=== PATIENT | male | born 1935 | race Caucasian/White ===

== ENCOUNTER → 2017-07-03 | Outpatient (CLI) | payer OTHER | END | disposition home or self-care (01) | LOC: LAB 08:18 | DX: R97.20 Elevated prostate specific antigen [PSA] (principal) ==

== ENCOUNTER 2018-02-01 07:25 | Outpatient (CLI) | payer OTHER | END 2018-02-01 12:22 | disposition home or self-care (01) | LOC: LAB 07:25 | DX: C61 Malignant neoplasm of prostate (principal) ==

== ENCOUNTER 2018-02-20 08:19 | Outpatient (CLI) | payer OTHER | END 2018-02-20 08:25 | disposition home or self-care (01) | LOC: NUCLEAR 08:19 | DX: C61 Malignant neoplasm of prostate (principal) | CPT/HCPCS: 78306; A9503 ==

== ENCOUNTER 2018-02-22 09:39 | Outpatient (CLI) | payer OTHER | END 2018-02-22 14:10 | disposition home or self-care (01) | LOC: MRI 09:39 | DX: C61 Malignant neoplasm of prostate (principal) | CPT/HCPCS: 72196; A9579 ==

== ENCOUNTER 2018-08-20 08:48 | Outpatient (CLI) | payer OTHER | END 2018-08-20 08:52 | disposition home or self-care (01) | LOC: LAB 08:48 | DX: C61 Malignant neoplasm of prostate (principal) ==

== ENCOUNTER 2018-08-28 08:33 | Outpatient (CLI) | payer OTHER | END 2018-08-28 08:35 | disposition home or self-care (01) | LOC: RAD 08:33 | DX: M15.0 Primary generalized (osteo)arthritis (principal) ==

== ENCOUNTER 2019-02-21 08:21 | Outpatient (CLI) | payer OTHER | END 2019-02-21 08:39 | disposition home or self-care (01) | LOC: LAB 08:21 | DX: E61.1 Iron deficiency (principal) ==

== ENCOUNTER 2019-03-04 09:07 | Outpatient (CLI) | payer OTHER | END 2019-03-04 09:16 | disposition home or self-care (01) | LOC: RAD 09:07 | DX: M17.0 Bilateral primary osteoarthritis of knee (principal) ==

== ENCOUNTER → 2020-02-28 07:31 | Outpatient (CLI) | payer OTHER | END | disposition home or self-care (01) | LOC: LAB 07:31 | PROVIDERS: ATTEND Urology | DX: C61 Malignant neoplasm of prostate (principal) ==

== ENCOUNTER 2020-08-30 07:48 | Outpatient (CLI) | payer OTHER | END 2020-08-30 07:50 | disposition home or self-care (01) | LOC: LAB 07:48 | PROVIDERS: ATTEND Urology | DX: C61 Malignant neoplasm of prostate (principal) ==

== ENCOUNTER 2020-09-08 11:08 | Outpatient (CLI) | payer OTHER | END 2020-09-08 11:22 | disposition home or self-care (01) | LOC: RAD 11:08 | PROVIDERS: ATTEND Family Medicine Geriatric Medicine | DX: M17.0 Bilateral primary osteoarthritis of knee (principal) ==

== ENCOUNTER → 2020-09-17 | Outpatient (CLI) | payer OTHER | END | disposition home or self-care (01) | LOC: SONOGRAMA 09:55 → MAMO-SONO 14:15 | PROVIDERS: ATTEND Family Medicine Geriatric Medicine | DX: I11.9 Hypertensive heart disease without heart failure (principal); N18.30 Chronic kidney disease, stage 3 unspecified ==

== ENCOUNTER 2021-05-18 08:20 | Outpatient (CLI) | payer OTHER | END 2021-05-18 08:25 | disposition home or self-care (01) | LOC: LAB 08:20 | PROVIDERS: ATTEND Urology | DX: C61 Malignant neoplasm of prostate (principal) ==

== ENCOUNTER 2021-05-28 08:30 | Outpatient (CLI) | payer OTHER | END 2021-05-28 08:36 | disposition home or self-care (01) | LOC: RAD 08:30 | PROVIDERS: ATTEND Family Medicine Geriatric Medicine | DX: M15.0 Primary generalized (osteo)arthritis (principal) ==

== ENCOUNTER 2022-03-08 09:18 | Outpatient (CLI) | payer OTHER | END 2022-03-08 15:45 | disposition home or self-care (01) | LOC: LAB 09:18 | DX: E78.2 Mixed hyperlipidemia (principal); D50.8 Other iron deficiency anemias; N39.0 Urinary tract infection, site not specified ==

== ENCOUNTER 2022-04-25 07:20 | Outpatient (CLI) | payer OTHER | END 2022-04-25 07:21 | disposition home or self-care (01) | LOC: NUCLEAR 07:20 | PROVIDERS: ATTEND Internal Medicine Clinical Cardiac Electrophysiology | DX: I20.0 Unstable angina (principal) | CPT/HCPCS: 78452; 93017; A9500; J0153 ==

== ENCOUNTER 2022-10-11 09:23 | Outpatient (CLI) | payer OTHER | END 2022-10-11 09:25 | disposition home or self-care (01) | LOC: LAB 09:23 | PROVIDERS: ATTEND Urology | DX: C61 Malignant neoplasm of prostate (principal) ==

== ENCOUNTER → 2023-05-21 10:14 | Outpatient (CLI) | payer OTHER ==
[~2023-05-21 10:14] MED LIST: BICALUTAMIDE50 MG PO; DICLOFENAC POTA50 MG PO; FERROUS SULFAT325 MG PO; GLIPIZIDE10 MG PO; LOSARTAN POTASS25 MG PO
== END | disposition home or self-care (01) ==
LOC: LAB 10:14
PROVIDERS: ATTEND Urology
DX: C61 Malignant neoplasm of prostate (principal)

== ENCOUNTER 2024-01-01 09:08 | Outpatient (CLI) | payer OTHER | END 2024-01-01 09:11 | disposition home or self-care (01) | LOC: LAB 09:08 | PROVIDERS: ATTEND Urology | DX: C61 Malignant neoplasm of prostate (principal) ==